=== PATIENT | female | born 1960 | race African-American/Black ===

== ENCOUNTER 2022-12-05 09:10 | Observation (INO) | payer BC ==
[2022-12-05] MEDS ORDERED: ACETAMINOPHEN 1000 MG/100 ML BAG IVPB ONE (10:12)
[2022-12-05] MEDS ORDERED: LACTATED RINGERS SOLUTION 1000 ML INFUS.BAG IV ONE (10:12)
[2022-12-05] MEDS ORDERED: ACETAMINOPHEN INJECTION 100 ML IVPB ONE (10:19)
[2022-12-05] MEDS ORDERED: ALBUTEROL SO4 2.5/IPRATROPIUM 0.5 INH SOL 3 ML VIAL.NEB. NEB ONE ×2 (10:19→13:20)
[2022-12-05] MEDS: ALBUTEROL SO4 2.5/IPRATROPIUM 0.5 INH SOL 3 ML VIAL.NEB. NEB SCH ×2 (10:37→13:24)
[2022-12-05 10:49] LABS: BASO % 0.7 % (0-2.0); EOS % 1.7 % (0-4.5); HEMATOCRIT 37.5 % (32.4-45.2); HEMOGLOBIN 12.5 GM/dL (10.7-15.3); LYMPH % 26.4 % (8-40); MCH 33.4 pg (25.7-33.7); MCHC 33.5 g/dl (32.0-36.0); MEAN CELL VOLUME 99.7 fl (80-96); MEAN PLT VOLUME 7.5 fl (7.5-11.1); MONO % 11.3 % (3.8-10.2); NEUT % 59.9 % (42.8-82.8); PLATELET COUNT 221 10^3/uL (134-434); RBC 3.76 M/mm3 (3.60-5.2); RDW 20.3 % (11.6-15.6); WHITE BLOOD COUNT 7.9 K/mm3 (4.0-10.0)
[2022-12-05 10:56] LABS: INR 1.03 (0.83-1.09); PROTHROMBIN TIME (PATIENT) 11.9 SEC (9.7-13.0)
[2022-12-05 10:59] LABS: ACTIVATED PTT 33.5 SECONDS (25.2-36.5)
[2022-12-05 11:08] LABS: POTASSIUM 5.4 mmol/L (3.5-5.1)
[2022-12-05 11:12] LABS: ALBUMIN 3.1 g/dl (3.4-5.0); BLOOD UREA NITROGEN 5.9 mg/dL (7-18); CALCIUM 8.8 mg/dL (8.5-10.1); MAGNESIUM 1.7 mg/dL (1.8-2.4)
[2022-12-05 11:15] LABS: CREATININE 0.5 mg/dL (0.55-1.3)
[2022-12-05 11:20] LABS: BILIRUBIN,TOTAL 1.4 mg/dL (0.2-1); TOT PROT 6.6 g/dl (6.4-8.2)
[2022-12-05] MEDS ORDERED: DEXAMETHASONE SOD PHOSPHATE 10 MG/1 ML VIAL IVPUSH ONE (13:02)
[2022-12-05] MEDS ORDERED: DEXAMETHASONE SOD PHOSPHATE 10 MG/1 ML VIAL ONE (13:21)
[2022-12-05] MEDS ORDERED: MAGNESIUM SULF 50% (8.12 MEQ/2 ML-1 GM VIAL) IVPB ONE (14:41)
[2022-12-05] MEDS ORDERED: IBUPROFEN 800 MG/8 ML IJ IVPB PRN (14:51)
[2022-12-05] MEDS: SODIUM CHLORIDE 1,000 ML IV SCH (15:33)
[2022-12-05] MEDS: INSULIN SLIDING SCALE (NOVOLOG) 1 VIAL SQ SCH ×2 (16:24→21:55)
[2022-12-05 16:37] LABS: BILIRUBIN,DIRECT 0.2 mg/dL (0.0-0.2)
[2022-12-05 17:48] LABS: POTASSIUM 4.6 mmol/L (3.5-5.1)
[2022-12-05 17:51] LABS: CALCIUM 8.5 mg/dL (8.5-10.1)
[2022-12-05 17:52] LABS: ALBUMIN 2.8 g/dl (3.4-5.0); BLOOD UREA NITROGEN 5.4 mg/dL (7-18)
[2022-12-05 17:54] LABS: CREATININE 0.4 mg/dL (0.55-1.3)
[2022-12-05 17:56] LABS: BILIRUBIN,TOTAL 1.2 mg/dL (0.2-1)
[2022-12-06] MEDS ORDERED: ONDANSETRON 4 MG/2 ML VIAL IVPUSH PRN (02:56)
[2022-12-06] MEDS: SODIUM CHLORIDE 1,000 ML IV SCH ×2 (06:02→19:10)
[2022-12-06] MEDS: INSULIN SLIDING SCALE (NOVOLOG) 1 VIAL SQ SCH ×4 (06:22→21:58)
[2022-12-06 08:12] LABS: BASO % 0.1 % (0-2.0); HEMATOCRIT 38.7 % (32.4-45.2); HEMOGLOBIN 12.5 GM/dL (10.7-15.3); LYMPH % 26.2 % (8-40); MCH 33.5 pg (25.7-33.7); MCHC 32.3 g/dl (32.0-36.0); MEAN CELL VOLUME 103.6 fl (80-96); MEAN PLT VOLUME 7.7 fl (7.5-11.1); MONO % 6.6 % (3.8-10.2); NEUT % 67.1 % (42.8-82.8); PLATELET COUNT 222 10^3/uL (134-434); RBC 3.74 M/mm3 (3.60-5.2); RDW 20.6 % (11.6-15.6); WHITE BLOOD COUNT 7.2 K/mm3 (4.0-10.0)
[2022-12-06 08:34] LABS: POTASSIUM 5.3 mmol/L (3.5-5.1)
[2022-12-06 08:41] LABS: ALBUMIN 3.1 g/dl (3.4-5.0); CALCIUM 8.7 mg/dL (8.5-10.1)
[2022-12-06 08:42] LABS: BLOOD UREA NITROGEN 6.2 mg/dL (7-18); MAGNESIUM 2.1 mg/dL (1.8-2.4)
[2022-12-06 08:44] LABS: CREATININE 0.6 mg/dL (0.55-1.3)
[2022-12-06 08:45] LABS: BILIRUBIN,DIRECT 0.4 mg/dL (0.0-0.2); PHOSPHOROUS 3.3 mg/dL (2.5-4.9)
[2022-12-06 08:46] LABS: TOT PROT 6.6 g/dl (6.4-8.2)
[2022-12-06 08:47] LABS: BILIRUBIN,TOTAL 0.9 mg/dL (0.2-1)
[2022-12-06] MEDS: ENOXAPARIN NA (PORCINE) 40 MG/0.4 ML DISP.SYRIN SQ SCH (09:13)
[2022-12-06] MEDS ORDERED: predniSONE 10 MG TABLET (UD) PO SCH (10:00)
[2022-12-06] MEDS ORDERED: PANTOPRAZOLE SODIUM 40 MG VIAL IVPUSH SCH (10:00)
[2022-12-06 11:01] LABS: ANISOCYTOSIS 1+; MACROCYTOSIS 1+
[2022-12-06] MEDS ORDERED: MONTELUKAST NA 10 MG TABLET PO SCH (18:00)
[2022-12-06] MEDS ORDERED: clonazePAM 0.5 MG TABLET PO ONE (20:05)
[2022-12-06] MEDS ORDERED: ESCITALOPRAM OXALATE 20 MG TABLET PO SCH (22:00)
[2022-12-06] MEDS ORDERED: ARIPiprazole 5 MG TABLET PO SCH (22:00)
[2022-12-07] MEDS: INSULIN SLIDING SCALE (NOVOLOG) 1 VIAL SQ SCH ×3 (06:31→17:20)
[2022-12-07 08:07] LABS: BASO % 0.4 % (0-2.0); EOS % 1.2 % (0-4.5); HEMATOCRIT 34.7 % (32.4-45.2); HEMOGLOBIN 11.4 GM/dL (10.7-15.3); LYMPH % 36.2 % (8-40); MCH 33.9 pg (25.7-33.7); MCHC 32.8 g/dl (32.0-36.0); MEAN CELL VOLUME 103.4 fl (80-96); MONO % 10.4 % (3.8-10.2); NEUT % 51.8 % (42.8-82.8); PLATELET COUNT 179 10^3/uL (134-434); RBC 3.35 M/mm3 (3.60-5.2); RDW 20.7 % (11.6-15.6); WHITE BLOOD COUNT 7.8 K/mm3 (4.0-10.0)
[2022-12-07 08:20] LABS: POTASSIUM 4.2 mmol/L (3.5-5.1)
[2022-12-07 08:30] LABS: CALCIUM 8.5 mg/dL (8.5-10.1)
[2022-12-07 08:31] LABS: ALBUMIN 2.8 g/dl (3.4-5.0); MAGNESIUM 1.6 mg/dL (1.8-2.4)
[2022-12-07 08:32] LABS: BLOOD UREA NITROGEN 5.7 mg/dL (7-18)
[2022-12-07] MEDS ORDERED: MAGNESIUM OXIDE 400 MG TABLET (FP) PO ONE ×2 (08:32→11:30)
[2022-12-07 08:33] LABS: PHOSPHOROUS 1.7 mg/dL (2.5-4.9)
[2022-12-07 08:34] LABS: CREATININE 0.6 mg/dL (0.55-1.3)
[2022-12-07 08:35] LABS: TOT PROT 5.9 g/dl (6.4-8.2)
[2022-12-07] MEDS ORDERED: FAMOTIDINE 20 MG TABLET PO SCH (10:00)
[2022-12-07] MEDS ORDERED: predniSONE 10 MG TABLET (UD) PO SCH (10:00)
[2022-12-07] MEDS ORDERED: NAPH,MB-DB/K PH,MBDB POWDER PACKET PO ONE (10:29)
[2022-12-07] MEDS: ENOXAPARIN NA (PORCINE) 40 MG/0.4 ML DISP.SYRIN SQ SCH (11:05)
[2022-12-07] MEDS ORDERED: SODIUM PHOSPHATE - 30 MM in SODIUM CHLORIDE 500 ML IVPB ONE (11:30)
[2022-12-07] MEDS ORDERED: NEOMYCIN/POLYMYXN/HC OTIC SOLUTION 10 ML BOTTLE AD SCH (12:00)
[2022-12-07 14:49] VITALS: BMI 20.5
[2022-12-07 16:34] VITALS: BP 120/90; PULSE 74; RESP 18; TEMP 98.3
== END 2022-12-07 18:14 | disposition home or self-care (01) ==
LOC: JER 09:10 → JERBED 13:08 → J4W 13:54
PROVIDERS: ADMIT Internal Medicine; ATTEND Internal Medicine
PROC: 3E0F7GC Introduction of Other Therapeutic Substance into Respiratory Tract, Via Natural or Artificial Opening (ICD-10-PCS; principal; 2022-12-05)
PROC: 3E033NZ Introduction of Analgesics, Hypnotics, Sedatives into Peripheral Vein, Percutaneous Approach (ICD-10-PCS; 2022-12-05)
PROC: 3E033GC Introduction of Other Therapeutic Substance into Peripheral Vein, Percutaneous Approach (ICD-10-PCS; 2022-12-05)
PROC: 3E023GC Introduction of Other Therapeutic Substance into Muscle, Percutaneous Approach (ICD-10-PCS; 2022-12-05)
PROC: 3E033GC Introduction of Other Therapeutic Substance into Peripheral Vein, Percutaneous Approach (ICD-10-PCS; 2022-12-05)
PROC: 3E0337Z Introduction of Electrolytic and Water Balance Substance into Peripheral Vein, Percutaneous Approach (ICD-10-PCS; 2022-12-05)
DX: R07.89 Other chest pain (principal); M87.9 Osteonecrosis, unspecified; R55 Syncope and collapse; Z88.0 Allergy status to penicillin; Z88.1 Allergy status to other antibiotic agents; K21.9 Gastro-esophageal reflux disease without esophagitis; J45.909 Unspecified asthma, uncomplicated
CPT/HCPCS: 0241U-QW; 36415; 71045-TC-FY; 71275-TC; 74177-TC; 80053; 82248; 82533; 82962; 83036; 83735; 84100; 84443; 84484; 85025; 85610; 85730; 86308; 86705; 87340; 87517; 87902; 93005; 93010; 94640; 96361; 96372; 96374; 96375; 97116-GP; 97162-GP; 99285-25; G0378; J1100; Q9967